=== PATIENT | male | born 2000 | race Two or more races ===

== ENCOUNTER 2020-08-30 22:49 | Emergency (ER) | payer SELFPAY ==
[~2020-08-30] VITALS: Ht 172.7 cm; Wt 81.2 kg
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
--- NOTE | 2020-08-30 23:20 | NUR ---
MARY, SISTER [phone]
--- NOTE | 2020-08-30 23:26 | NUR ---
Patient discharged to home in stable condition. Written and verbal after care instructions given. Patient verbalizes understanding of instruction. Pt ambulatory with a steady gait
[2020-08-30 23:48] VITALS: BP 133/66
== END 2020-08-30 23:49 | disposition home or self-care (01) ==
LOC: EDBD 22:53 → ER 22:53
DX: Z02.89 Encounter for other administrative examinations (principal); R00.0 Tachycardia, unspecified